=== PATIENT | female | born 1940 | race Caucasian/White ===

== ENCOUNTER 2020-02-24 21:54 | Observation (INO) | payer MEDICARE, BC ==
[2020-02-24 22:21] LABS: #Basophils 0.1 thou/uL (0.0-0.2); #Eosinphils 0.2 thou/uL (0.0-0.7); #Lymphocytes 2.1 thou/uL (1.20-3.40); #Monocytes 0.5 thou/uL (0.11-0.59); %Basophils 1.2 % (0.0-1.0); %Eosinophils 2.3 % (0.0-10.0); %Lymphocytes 30.4 % (21.0-51.0); %Monocytes 7.4 % (0.0-10.0); %Neutrophils 58.7 % (42.0-75.0); Mean Corpuscular HGB CONC 33.5 g/dL (32.0-36.0); Mean Corpuscular Volume 92.3 fL (78.0-98.0); Platelet Count 154 thou/uL (130-400); RBC Distribution Width 13.9 % (11.5-14.5); Red Blood Cell (RBC) Count 3.87 mill/uL (4.20-5.40); White Blood Cell (WBC) Count 6.8 thou/uL (4.8-10.8)
[2020-02-24 22:29] LABS: INR-International Normal Ratio 1.1; PTT 30.5 sec (22.9-36.1); Prothrombin Time 14.6 sec (12.0-14.7)
[2020-02-24 22:44] LABS: ALT (SGPT) 27 U/L (8-55); AST (SGOT) 51 U/L (5-34); Alkaline Phosphatase 134 U/L (40-110); Anion Gap 12 mmol/L (10-20); BUN (Urea Nitrogen) 12 mg/dL (9.8-20.1); Bilirubin, Total 0.3 mg/dL (0.2-1.2); CK (CPK) 165 U/L (29-168); Calc. Creatinine Clearance 0 mL/min (70-130); Calcium 9.3 mg/dL (7.8-10.44); Carbon Dioxide 24 mmol/L (23-31); Chloride 108 mmol/L (98-107); Estimated GFR-MDRD 65; Globulin 3.1 g/dL (2.4-3.5); Glucose 111 mg/dL (83-110); Potassium 3.7 mmol/L (3.5-5.1); Protein, Total 7.1 g/dL (6.0-8.3); Sodium 140 mmol/L (136-145)
[2020-02-24] MEDS ORDERED: Ondansetron PF 4 MG/2 ML Vial ONE (22:50)
[2020-02-24] MEDS ORDERED: Morphine 4 MG/ML VIAL ONE (22:50)
[2020-02-24] MEDS ORDERED: Adacel (T-DAP) 0.5 ML SYRINGE ONE (23:28)
[2020-02-24 23:29] LABS: Bilirubin Negative (Negative); Blood, Urine Negative (Negative); Clarity Clear (Clear); Glucose, Urine (Dipstick) Normal (Negative); Leukocyte Negative Leu/uL (Negative); Nitrite Negative (Negative); Protein, Urine (Dipstick) Negative (Neg-Trace); Urobilinogen Normal mg/dL (Less than 2)
--- NOTE | 2020-02-25 00:28 | PDOC.HHP ---
Hospitalist HPI - History of Present Illness Snake bite History of Present Illness: Patient with PMH of HLD and DM presents to ED for evaluation of snake bite. Tells me that earlier this evening while working in her garden encounter a small snake darked colored in appearance and sustained bite to right dorsum of her hand. Reports immediate and progressive pain with swelling to the area but no other symptoms such as shortness of breath, tachycardia, nausea, vomiting, abdominal pain, hypersalivation. Currently tells me that her swelling has started to resolve and is not as painful after receiving some benadryl and pain medication. Tetanus vaccine given. No antivenin. Initial ED evaluation reveals elderly female with no evidence of distress. Vital signs remain stable only with elevated BP in the 170s systolic. Hospitalist ROS - Review of Systems Constitutional: denies: fever, chills, sweats, weakness, malaise Eyes: denies: pain, conjunctivae inflammation, eyelid inflammation, redness ENT: denies: ear pain, ear discharge, nose discharge, nose congestion Respiratory: denies: cough, dry, shortness of breath, hemoptysis, SOB with excertion Cardiovascular: denies: chest pain, palpitations, orthopnea, paroxysmal noc. dyspnea, light headedness Gastrointestinal: denies: nausea, vomiting, abdominal pain, diarrhea Genitourinary: denies: dysuria, frequency, incontinence Musculoskeletal: reports: other (Reports right hand pain and swelling). denies : neck pain, shoulder pain Skin: reports: rash (Rash to dorsum of right hand) Neurological: denies: weakness, numbness, incoordination - Exam General Appearance: NAD, awake alert Eye: PERRL, anicteric sclera ENT: normocephalic atraumatic Neck: supple, no JVD Heart: RRR, no murmur, no gallops Respiratory: CTAB, no wheezes, no rales, no ronchi, normal chest expansion, no tachypnea Gastrointestinal: soft, non-tender, non-distended, normal bowel sounds Extremities: no cyanosis, no clubbing Extremities - other findings: Right hand with mild swelling and erythema Skin: normal turgor Skin - other findings: Righ hand with mild erythematous rash and swelling Neurological: cranial nerve grossly intact, normal sensation to touch, no weakness, no focal deficits Musculoskeletal: normal tone, normal strength Psychiatric: normal affect, normal behavior, A&O x 3, oriented to person Hospitalist Results - Labs Result Diagrams: 02/24/20 22:07 02/24/20 22:07 Lab results: WBC 6.8 thou/uL (4.8-10.8) 02/24/20 22:07 Hgb 12.0 g/dL (12.0-16.0) 02/24/20 22:07 Hct 35.7 % (36.0-47.0) L 02/24/20 22:07 MCV 92.3 fL (78.0-98.0) 02/24/20 22:07 Plt Count 154 thou/uL (130-400) 02/24/20 22:07 Neutrophils % 58.7 % (42.0-75.0) 02/24/20 22:07 Sodium 140 mmol/L (136-145) 02/24/20 22:07 Potassium 3.7 mmol/L (3.5-5.1) 02/24/20 22:07 Chloride 108 mmol/L (98-107) H 02/24/20 22:07 Carbon Dioxide 24 mmol/L (23-31) 02/24/20 22:07 BUN 12 mg/dL (9.8-20.1) 02/24/20 22:07 Creatinine 0.85 mg/dL (0.6-1.1) 02/24/20 22:07 Glucose 111 mg/dL (83-110) H 02/24/20 22:07 Calcium 9.3 mg/dL (7.8-10.44) 02/24/20 22:07 Total Bilirubin 0.3 mg/dL (0.2-1.2) 02/24/20 22:07 AST 51 U/L (5-34) H 02/24/20 22:07 ALT 27 U/L (8-55) 02/24/20 22:07 Alkaline Phosphatase 134 U/L (40-110) H 02/24/20 22:07 Creatine Kinase 165 U/L (29-168) 02/24/20 22:07 Serum Total Protein 7.1 g/dL (6.0-8.3) 02/24/20 22:07 Albumin 4.0 g/dL (3.4-4.8) 02/24/20 22:07 Urine Ketones Negative mg/dL (Negative) 02/24/20 23:19 Urine Blood Negative (Negative) 02/24/20 23:19 Urine Nitrite Negative (Negative) 02/24/20 23:19 Ur Leukocyte Esterase Negative [place]/uL (Negative) 02/24/20 23:19 Hospitalist H&P A/P - Plan Plan: Problem List 1. Snake bite 2. History of diabetes 3. History of hyperlipidemia Assessment and Plan 1. Snake bite - admit for observation - no systemic symptoms present - continue with symptoms control - Tylenol, Percocet and Benadryl PRN for symptoms control - educated about risk of developing cellulitis 2. History of diabetes - resume metformin 3. History of hyperlipidemia - resume statin DVT PPX: Low risk, continue with ambulation FULL CODE
--- NOTE | 2020-02-25 00:33 | RAD ---
Exam: XR Hand Rt 3 View STANDARD HISTORY: Snakebite COMPARISON: None FINDINGS: No radiopaque foreign body is seen. Subcutaneous soft tissue swelling is seen at the dorsal aspect of the hand. No acute fracture, dislocation, or other acute osseous abnormality is identified. IMPRESSION: Subcutaneous soft tissue swelling of the dorsal aspect of the hand without evidence of a radiopaque f oreign body. No acute osseous abnormality is seen.
[2020-02-25] MEDS ORDERED: Ondansetron PF 4 MG/2 ML Vial IVP PRN (01:28)
[2020-02-25] MEDS ORDERED: Acetaminophen 325 MG TAB PO PRN (01:28)
[2020-02-25] MEDS ORDERED: HYDROcodone/Acetaminophen 5/325 mg Tablet PO PRN (01:28)
[2020-02-25] MEDS ORDERED: diphenhydrAMINE 25 MG in Sodium Chloride 0.9% 50 ML IVPB PRN (01:29)
[2020-02-25 02:15] VITALS: BMI 25.1
[2020-02-25 06:51] LABS: #Basophils 0.1 thou/uL (0.0-0.2); #Eosinphils 0.1 thou/uL (0.0-0.7); #Lymphocytes 2.3 thou/uL (1.20-3.40); #Monocytes 0.5 thou/uL (0.11-0.59); #Neutrophils 3.7 thou/uL (1.40-6.50); %Basophils 0.9 % (0.0-1.0); %Eosinophils 1.8 % (0.0-10.0); %Lymphocytes 34.9 % (21.0-51.0); %Monocytes 7.1 % (0.0-10.0); %Neutrophils 55.4 % (42.0-75.0); Hemoglobin 10.9 g/dL (12.0-16.0); Mean Corpuscular HGB CONC 33.7 g/dL (32.0-36.0); Mean Corpuscular Hemoglobin 31.2 pg (27.0-31.0); Mean Corpuscular Volume 92.5 fL (78.0-98.0); Mean Platelet Volume 8.9 fL (7.4-10.4); Platelet Count 141 thou/uL (130-400); Red Blood Cell (RBC) Count 3.49 mill/uL (4.20-5.40); White Blood Cell (WBC) Count 6.7 thou/uL (4.8-10.8)
[2020-02-25 07:16] LABS: Anion Gap 10 mmol/L (10-20); BUN (Urea Nitrogen) 11 mg/dL (9.8-20.1); Calc. Creatinine Clearance 65 mL/min (70-130); Calcium 8.7 mg/dL (7.8-10.44); Carbon Dioxide 24 mmol/L (23-31); Chloride 109 mmol/L (98-107); Estimated GFR-MDRD 74; Glucose 84 mg/dL (83-110); Sodium 139 mmol/L (136-145)
[2020-02-25] MEDS ORDERED: Dextrose 5% in Water 1,000 ML IV PRN (07:19)
[2020-02-25] MEDS ORDERED: Sodium Chloride 0.65% Nasal 44 ML BOT EA NARE PRN (07:19)
[2020-02-25] MEDS ORDERED: Senokot S 8.6-50 MG TAB PO PRN (07:19)
[2020-02-25] MEDS ORDERED: Ondansetron ODT 4 MG TAB SL PRN (07:19)
[2020-02-25] MEDS ORDERED: Dextrose 50% Abboject 50 ML SYRINGE SLOW IVP PRN (07:19)
[2020-02-25] MEDS ORDERED: Loperamide HCl 2 MG CAP PO PRN (07:19)
[2020-02-25] MEDS ORDERED: HumaLOG 300 UNITS/3 ML VIAL SC PRN ×2 (07:19)
[2020-02-25] MEDS ORDERED: hydrALAZINE 20 MG/ML VIAL SLOW IVP PRN (07:19)
[2020-02-25] MEDS ORDERED: Zolpidem Tartrate 5 MG TAB PO PRN (07:19)
[2020-02-25] MEDS ORDERED: Diabetic Tussin 200 MG/10 ML UDCUP PO PRN (07:19)
[2020-02-25] MEDS ORDERED: Bisacodyl 10 MG SUPP PR PRN (07:19)
[2020-02-25] MEDS: Rosuvastatin 20 MG TAB PO SCH (07:51)
[2020-02-25] MEDS: Aspirin 81 mg Enteric Coated Tablet PO SCH (07:51)
[2020-02-25] MEDS: Meloxicam 7.5 MG TAB PO SCH (08:08)
[2020-02-25] MEDS: metFORMIN XR 500 MG TAB PO SCH (08:09)
--- NOTE | 2020-02-25 10:33 | PDOC.HOSPP ---
- Subjective Encounter Date: 02/25/20 Encounter Time: 09:45 Subjective: Patient seen and examined. No overnight events, c/o right hand swelling and pain - Objective Vital Signs & Weight: Vital Signs (12 hours) Temp Pulse Resp BP Pulse Ox 02/25/20 07:18 98.6 F 80 18 152/84 H 97 02/25/20 03:43 95 02/25/20 02:16 97.8 F 55 L 18 132/69 95 Weight Weight 146 lb 4.8 oz Result Diagrams: 02/25/20 05:59 02/25/20 05:59 Hospitalist ROS - Review of Systems ENT: denies: ear pain, ear discharge, nose pain, nose discharge, nose congestion , mouth pain, mouth swelling, throat pain, throat swelling, other Respiratory: denies: cough, dry, shortness of breath, hemoptysis, SOB with excertion, pleuritic pain, sputum, wheezing, other Cardiovascular: denies: chest pain, palpitations, orthopnea, paroxysmal noc. dyspnea, edema, light headedness, other Gastrointestinal: denies: nausea, vomiting, abdominal pain, diarrhea, constipation, melena, hematochezia, other Genitourinary: denies: dysuria, frequency, incontinence, hematuria, retention, other Musculoskeletal: reports: hand pain. denies: neck pain, shoulder pain, arm pain , back pain, leg pain, foot pain, other Skin: denies: rash, lesions, [place], bruising, other - Medication Medications: Active Medications Generic Name Dose Route Start Last Admin Trade Name Freq PRN Reason Stop Dose Admin Aspirin 81 mg 02/25/20 09:00 02/25/20 07:51 Ecotrin PO Not Given DAILY DANNIE Meloxicam 7.5 mg 02/25/20 09:00 02/25/20 08:08 Mobic PO 7.5 mg DAILY DANNIE Administration Metformin HCl 500 mg 02/25/20 08:00 02/25/20 08:09 Glucophage Xr PO 500 mg QAM-WM DANNIE Administration Pantoprazole Sodium 40 mg 02/25/20 09:00 02/25/20 07:52 Protonix PO 40 mg DAILY DANNIE Administration Raloxifene HCl 60 mg 02/25/20 09:00 02/25/20 08:09 Evista PO 60 mg DAILY DANNIE Administration Rosuvastatin Calcium 40 mg 02/25/20 09:00 02/25/20 07:51 Crestor PO 40 mg DAILY DANNIE Administration - Exam General Appearance: NAD, awake alert Eye: PERRL, anicteric sclera ENT: normocephalic atraumatic, no oropharyngeal lesions Neck: supple, symmetric, no JVD Heart: RRR, no murmur, no gallops, no rubs Respiratory: CTAB, no wheezes, no rales, no ronchi Gastrointestinal: soft, non-tender, non-distended, normal bowel sounds Extremities: no cyanosis, no clubbing Skin: normal turgor, no lesions Neurological: cranial nerve grossly intact, no focal deficits Musculoskeletal: normal tone, normal strength Psychiatric: normal affect, normal behavior Hosp A/P (1) Swelling of right hand Code(s): M79.89 - OTHER SPECIFIED SOFT TISSUE DISORDERS Status: Acute (2) Snake bite Code(s): W59.11XA - BITTEN BY NONVENOMOUS SNAKE, INITIAL ENCOUNTER Status: Acute (3) GERD (gastroesophageal reflux disease) Code(s): K21.9 - GASTRO-ESOPHAGEAL REFLUX DISEASE WITHOUT ESOPHAGITIS Status: Chronic Qualifiers: Esophagitis presence: without esophagitis Qualified Code(s): K21.9 - Gastro -esophageal reflux disease without esophagitis (4) Diabetes type 2, controlled Code(s): E11.9 - TYPE 2 DIABETES MELLITUS WITHOUT COMPLICATIONS Status: Chronic (5) Dyslipidemia Code(s): E78.5 - HYPERLIPIDEMIA, UNSPECIFIED Status: Chronic - Plan old records reviewed/req overall doing OK, will monitor for any deterioration I doubt she will need any antivenom pain control expecting discharge tomorrow morning home medication reconciled
[2020-02-26 07:46] VITALS: BP 139/62; TEMP 98.1
[2020-02-26] MEDS: Aspirin 81 mg Enteric Coated Tablet PO SCH (08:18)
[2020-02-26] MEDS: metFORMIN XR 500 MG TAB PO SCH (08:41)
[2020-02-26] MEDS: Meloxicam 7.5 MG TAB PO SCH (08:41)
[2020-02-26] MEDS: Rosuvastatin 20 MG TAB PO SCH (08:41)
--- NOTE | 2020-02-26 10:57 | PDOC.HOSPP ---
- Subjective Encounter Date: 02/26/20 Encounter Time: 07:40 Subjective: Patient seen and examined. No new complaints. No overnight events - Objective Vital Signs & Weight: Vital Signs (12 hours) Temp Pulse Resp BP Pulse Ox 02/26/20 07:38 98.1 F 79 18 139/62 94 L 02/26/20 04:00 98.4 F 71 16 134/74 95 02/26/20 00:30 98.3 F 67 16 138/57 L 94 L Weight Admit Weight 146 lb Weight 146 lb 4.8 oz Result Diagrams: 02/25/20 05:59 02/25/20 05:59 Additional Labs: Accuchecks 02/25/20 02/25/20 02/25/20 20:23 15:33 11:14 POC Glucose 124 H 93 105 Hospitalist ROS - Review of Systems ENT: denies: ear pain, ear discharge, nose pain, nose discharge, nose congestion , mouth pain, mouth swelling, throat pain, throat swelling, other Respiratory: denies: cough, dry, shortness of breath, hemoptysis, SOB with excertion, pleuritic pain, sputum, wheezing, other Cardiovascular: denies: chest pain, palpitations, orthopnea, paroxysmal noc. dyspnea, edema, light headedness, other Gastrointestinal: denies: nausea, vomiting, abdominal pain, diarrhea, constipation, melena, hematochezia, other Genitourinary: denies: dysuria, frequency, incontinence, hematuria, retention, other Musculoskeletal: denies: neck pain, shoulder pain, arm pain, back pain, hand pain, leg pain, foot pain, other - Medication Medications: Active Medications Generic Name Dose Route Start Last Admin Trade Name Freq PRN Reason Stop Dose Admin Aspirin 81 mg 02/25/20 09:00 02/26/20 08:18 Ecotrin PO Not Given DAILY DANNIE Meloxicam 7.5 mg 02/25/20 09:00 02/26/20 08:41 Mobic PO 7.5 mg DAILY DANNIE Administration Metformin HCl 500 mg 02/25/20 08:00 02/26/20 08:41 Glucophage Xr PO 500 mg QAM-WM DANNIE Administration Pantoprazole Sodium 40 mg 02/25/20 09:00 02/26/20 08:41 Protonix PO 40 mg DAILY DANNIE Administration Raloxifene HCl 60 mg 02/25/20 09:00 02/26/20 08:42 Evista PO 60 mg DAILY DANNIE Administration Rosuvastatin Calcium 40 mg 02/25/20 09:00 02/26/20 08:41 Crestor PO 40 mg DAILY DANNIE Administration - Exam General Appearance: NAD, awake alert Eye: PERRL, anicteric sclera ENT: normocephalic atraumatic, no oropharyngeal lesions Neck: supple, symmetric, no JVD Heart: RRR, no murmur, no gallops, no rubs Respiratory: CTAB, no wheezes, no rales, no ronchi Gastrointestinal: soft, non-tender, non-distended, normal bowel sounds Extremities: no cyanosis, no clubbing, no edema Skin: normal turgor, no lesions Neurological: no focal deficits Musculoskeletal: normal tone, normal strength Psychiatric: normal affect, normal behavior Hosp A/P (1) Swelling of right hand Code(s): M79.89 - OTHER SPECIFIED SOFT TISSUE DISORDERS Status: Acute (2) Snake bite Code(s): W59.11XA - BITTEN BY NONVENOMOUS SNAKE, INITIAL ENCOUNTER Status: Acute (3) GERD (gastroesophageal reflux disease) Code(s): K21.9 - GASTRO-ESOPHAGEAL REFLUX DISEASE WITHOUT ESOPHAGITIS Status: Chronic Qualifiers: Esophagitis presence: without esophagitis Qualified Code(s): K21.9 - Gastro -esophageal reflux disease without esophagitis (4) Diabetes type 2, controlled Code(s): E11.9 - TYPE 2 DIABETES MELLITUS WITHOUT COMPLICATIONS Status: Chronic (5) Dyslipidemia Code(s): E78.5 - HYPERLIPIDEMIA, UNSPECIFIED Status: Chronic - Plan old records reviewed/req overall doing OK, will monitor for any deterioration I doubt she will need any antivenom pain control expecting discharge tomorrow morning home medication reconciled 02/26/20 no worsening no need for antivenom dc home today
--- NOTE | 2020-02-26 12:22 | DIS ---
DATE OF ADMISSION: 02/25/2020 DATE OF DISCHARGE: 02/26/2020 PRIMARY CARE PHYSICIAN: [facility] Call admission. DISCHARGE DISPOSITION: Home. PRIMARY DISCHARGE DIAGNOSIS: Right hand swelling due to snake bite. SECONDARY DISCHARGE DIAGNOSES: 1. Diabetes, type 2. 2. Dyslipidemia. 3. Hypertension. 4. Gastroesophageal reflux disease. PRIMARY PROCEDURE/OPERATION: None. RADIOLOGICAL INVESTIGATION: Hand x-ray. SIGNIFICANT LABORATORY DATA: Hemoglobin 10.9. INR 1.1. Creatinine 0.76. Urinalysis, normal. DISCHARGE MEDICATIONS: 1. Aspirin 81 mg daily. 2. Baclofen 10 mg daily. 3. Clobetasol topical application b.i.d. 4. Nexium 20 mg daily. 5. Fish oil 2000 mg daily. 6. Meloxicam 7.5 mg p.o. daily. 7. Metformin 500 mg p.o. daily. 8. 60 mg daily. 9. Crestor 40 mg p.o. daily. CONTRAINDICATION: None. CODE STATUS: Full code. 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 ALLERGIES: NO KNOWN DRUG ALLERGIES. DISCHARGE PLAN: Posthospital, the patient will follow up with primary care physician. HOSPITAL COURSE: The patient was admitted by Dr. Flores. Please see his H and P for further details. The patient was working in her yard, and subsequently, the patient was having right hand pain, swelling, and itching. The patient had snake bite. The patient's condition did not get worse. The patient was overall stable. The patient did not require any antivenom while in hospital. She was observed for 24 hours, and she was considered discharged next day. The patient is seen and examined at the bedside today. Please see my Progress Note from today for further details. Job ID: [id number]
== END 2020-02-26 11:40 | disposition home or self-care (01) ==
LOC: ERS 21:54 → T4-A 02-25 00:23
PROVIDERS: ADMIT Internal Medicine; ATTEND Internal Medicine
DX: T63.001A Toxic effect of unspecified snake venom, accidental (unintentional), initial encounter (principal); E11.9 Type 2 diabetes mellitus without complications; E78.5 Hyperlipidemia, unspecified; I10 Essential (primary) hypertension; K21.9 Gastro-esophageal reflux disease without esophagitis; Z79.84 Long term (current) use of oral hypoglycemic drugs; Z79.899 Other long term (current) drug therapy
CPT/HCPCS: 36415; 36416; 80048; 80053; 81003; 82550; 85025; 85384; 85610; 85730; 86850; 86900; 86901; 90471; 90715; 93005; 96374; 96375; G0378; J2270; J2405